=== PATIENT | female | born 1945 | race Caucasian/White ===

== ENCOUNTER 2021-08-16 06:59 | Day surgery (SDC) | payer MEDICARE, OTHER, SELFPAY ==
[2021-08-10 09:46] VITALS: BMI 23.4
[2021-08-11 10:22] VITALS: BMI 23.2
--- NOTE | 2021-08-12 13:35 | MHC.SHP ---
Pre-Procedural Eval Section A Date of Service: 08/12/21 The patient is an INPATIENT: No Changes since office visit: No Cold of Flu in the past 2 weeks, No New Medical Problems, No Changes in Medication and No Patient answered all questions The History & Physical has been completed within 30 days and I have reviewed it.: Yes Section B Chief Complaint: Cataract Right Eye Allergies: Allergies Allergy/AdvReac Type Severity Reaction Status Date / Time dexamethasone Allergy Itching, Verified 08/11/21 10:20 burning neomycin Allergy Itching, Verified 08/11/21 10:20 burning morphine AdvReac Nausea and Verified 08/11/21 10:21 Vomiting Plan Diagnosis/Plan: Unchanged I have reviewed the history and physical and performed a pertinent physical examination on my patient. No changes have occurred unless specified.
--- NOTE | 2021-08-13 13:15 | P.CONAN_ITS ---
Documented by User: Angela High NP 08/13/21 13:17 HPI - Anesthesia Eval Consult details Narrative: 76yo F for Right Cataract Extraction IOL Insertion PCP cleared No prev cataract on record PMFSH Past Medical History Medical History Arthritis Cataracts, both eyes PONV (postoperative nausea and vomiting) Surgical History Surgical History Hx of colonoscopy Hx of repair of left rotator cuff Hx of tonsillectomy Social History Social History (Updated 08/11/21 @ 10:22 by Mena Mckay RN) Patient Tobacco Use Status: Never used Tobacco Are you DNR?: No Advance Directives: No (will bring dos) Advance Directives Information Provided: No Advance Directives on File: No Meds Allergies Allergy/AdvReac Type Severity Reaction Status Date / Time dexamethasone Allergy Itching, Verified 08/16/21 08:00 burning neomycin Allergy Itching, Verified 08/16/21 08:00 burning morphine AdvReac Nausea and Verified 08/16/21 08:00 Vomiting Home Medications Medication Instructions Recorded Confirmed Last Taken Type [place] DHA 830 mg PO BID 08/11/21 Unknown History cholecalciferol (vitamin D3) 25 25 mcg PO DAILY 08/11/21 08/11/21 Unknown History mcg (1,000 unit) capsule (Vitamin D3) estradiol VAGINAL 2XW 08/11/21 Unknown History flaxseed oil 1,000 mg capsule 1,000 mg PO DAILY 08/11/21 08/11/21 Unknown History red yeast rice 600 mg capsule 1,200 mg PO BID 08/11/21 08/11/21 Unknown History triamcinolone acetonide 0.1 % appl TOPICAL 08/11/21 Unknown History topical cream Exam Exam Date and Time: August 13, 2021 1315 Height,Weight and Vital Signs: Height 5 ft 1 in Weight 55.792 kg Assessment and Plan Assessment Anesthesia Assessment: Chart Reviewed Documented by User: Franky Smith MD 08/16/21 08:15 [facility] Past Medical History Medical History Arthritis Cataracts, both eyes PONV (postoperative nausea and vomiting) Family History Family history of problems with anesthesia: No Surgical History Surgical History Hx of colonoscopy Hx of repair of left rotator cuff Hx of tonsillectomy History of Problems with Anesthesia: No Social History Social History (Updated 08/11/21 @ 10:22 by Mena Mckay RN) Patient Tobacco Use Status: Never used Tobacco Are you DNR?: No Advance Directives: No (will bring dos) Advance Directives Information Provided: No Advance Directives on File: No Meds Allergies Allergy/AdvReac Type Severity Reaction Status Date / Time dexamethasone Allergy Itching, Verified 08/16/21 08:00 burning neomycin Allergy Itching, Verified 08/16/21 08:00 burning morphine AdvReac Nausea and Verified 08/16/21 08:00 Vomiting Home Medications Medication Instructions Recorded Confirmed Last Taken Type [place] DHA 830 mg PO BID 08/11/21 Unknown History cholecalciferol (vitamin D3) 25 25 mcg PO DAILY 08/11/21 08/11/21 Unknown History mcg (1,000 unit) capsule (Vitamin D3) estradiol VAGINAL 2XW 08/11/21 Unknown History flaxseed oil 1,000 mg capsule 1,000 mg PO DAILY 08/11/21 08/11/21 Unknown History red yeast rice 600 mg capsule 1,200 mg PO BID 08/11/21 08/11/21 Unknown History triamcinolone acetonide 0.1 % appl TOPICAL 08/11/21 Unknown History topical cream Exam Airway Mallampati Class: II TM Dist: >3cm Neck ROM: Full Loose/Missing/Broken Teeth: No Heart: rrr+s1s2 Lungs: cta b/l Assessment and Plan Assessment Anesthesia Assessment: Anesthesia Plan Discussed Final Anesthetic Review Family History of Problems with Anesthesia: No History of Problems with Anesthesia: No NPO: Yes ASA Class: II Final Preanesthetic Review: No Changes in Pt Med Stat, Meds/Allgs Chart Reviewed, Consent Obtained/Reviewed and Anes Risks/Benef Reviewed Patient Risk: Intermediate Procedure Risk: Low Assessment/Block/Sedation in SS: Assess/Block/Sedation-SS Anesthetic Plan Anesthetic Plan: MAC: and Agree w/ Assess. and Plan Disposition: Standard PACU
[2021-08-16 08:02] VITALS: BP 150/88; PULSE 72; RESP 16; TEMP 36.2; O2SAT 97
[2021-08-16] MEDS: Tetracaine HCl/PF 0.5% Oph Sol 4 ML DROPS 1 DROP EYE-RIGHT (08:14)
[2021-08-16] MEDS: Lactated Ringers 500 ML 50 ML IV (08:15)
[2021-08-16] MEDS: Tropicamide 1 % Ophth Sol 3 ML BTL 1 DROP EYE-RIGHT ×3 (08:16→08:28)
[2021-08-16] MEDS: Phenylephrine HCL 2.5% Oph SoL 2 ML BOTTLE 1 DROP EYE-RIGHT ×3 (08:19→08:32)
--- NOTE | 2021-08-16 09:17 | P.PCNO_ITS ---
Ophthalmology Procedure Procedure Date of Service: 08/16/21 Ophthalmology Viscoelastic: Healon Duet Dual Pack Pro Ophthalmology Lenses: TECNIS ZXR00 (12.5) Procedure Notes: PREOPERATIVE DIAGNOSIS: Decreased visual acuity right eye secondary to cataract POSTOPERATIVE DIAGNOSIS: Same PROCEDURE: Right cataract extraction with multifocal intraocular lens insertion SURGEON: Diaz Cox M.D. ANESTHESIA: Topical/MAC ESTIMATED BLOOD LOSS: None COMPLICATIONS: None After obtaining informed consent, the patient was brought to the operating room suite and placed in the supine position. After adequate sedation per anesthesia, topical drops of Tetracaine were given to the right eye. The eye was then prepped and draped in the usual sterile fashion. The operating room microscope was then positioned over the operative eye and a lid speculum placed. A paracentesis was created. Viscoelastic was then instilled into the anterior chamber. A three plane incision was then created temporally, utilizing a 2.85 mm keratome. Capsulotomy forceps were then utilized to create a circular tear capsulotomy. Hydrodissection and hydrodelineation were carried out until adequate mobilization of the nucleus occurred. Phacoemulsification was then utilized to remove the dense central nuc leus followed by removal of the cortical material utilizing the automated aspiration irrigation unit. Viscoelastic was instilled into the posterior capsular bag followed by placement of a multifocal posterior chamber intraocular lens without difficulty. The residual Viscoelastic was then removed utilizing the automated IA machine. The wound was checked and found to be watertight. The patient tolerated the procedure well and the lid speculum was removed. Intracameral injection of Vigamox 0.1 mL followed by a subtenon injection of Kenalog-40 0.2 mL were administered. The patient will be seen in the a.m.
[2021-08-16 09:41] VITALS: BP 130/68; PULSE 62; RESP 14; TEMP 36.8; O2SAT 98
== END 2021-08-16 10:02 | disposition home or self-care (01) ==
PROVIDERS: PCP Family Medicine; Visit Provider Ophthalmology
PROC: (CPT 66984; principal; 2021-08-16 09:10)
DX: H25.11 Age-related nuclear cataract, right eye (principal); H43.391 Other vitreous opacities, right eye; H54.7 Unspecified visual loss; Z88.8 Allergy status to other drugs, medicaments and biological substances
CPT/HCPCS: 66984; J2250; J3010; J3300; V2788

== ENCOUNTER 2021-08-30 06:46 | Day surgery (SDC) | payer MEDICARE, OTHER, SELFPAY ==
[2021-08-11 10:24] VITALS: BMI 23.2
--- NOTE | 2021-08-26 13:34 | MHC.SHP ---
Pre-Procedural Eval Section A Date of Service: 08/26/21 The patient is an INPATIENT: No Changes since office visit: No Cold of Flu in the past 2 weeks, No New Medical Problems, No Changes in Medication and No Patient answered all questions The History & Physical has been completed within 30 days and I have reviewed it.: Yes Section B Chief Complaint: Cataract Left Eye Allergies: Allergies Allergy/AdvReac Type Severity Reaction Status Date / Time dexamethasone Allergy Itching, Verified 08/16/21 08:00 burning neomycin Allergy Itching, Verified 08/16/21 08:00 burning morphine AdvReac Nausea and Verified 08/16/21 08:00 Vomiting Plan Diagnosis/Plan: Unchanged I have reviewed the history and physical and performed a pertinent physical examination on my patient. No changes have occurred unless specified.
[2021-08-30 07:31] VITALS: BP 139/83; PULSE 74; RESP 17; TEMP 36.1; O2SAT 96
[2021-08-30] MEDS: Phenylephrine HCL 2.5% Oph SoL 2 ML BOTTLE 1 DROP EYE-LEFT ×3 (07:43→07:45)
[2021-08-30] MEDS: Lactated Ringers 500 ML 50 ML IVCONT (07:43)
[2021-08-30] MEDS: Tetracaine HCl/PF 0.5% Oph Sol 4 ML DROPS 1 DROP EYE-LEFT (07:43)
[2021-08-30] MEDS: Tropicamide 1 % Ophth Sol 3 ML BTL 1 DROP EYE-LEFT ×3 (07:43→07:45)
--- NOTE | 2021-08-30 08:01 | HO.ANESPROP2 ---
HPI - Anesthesia Eval Consult details Narrative: Left eye cataract PMFSH Past Medical History Medical History Arthritis Cataracts, both eyes PONV (postoperative nausea and vomiting) Family History Family history of problems with anesthesia: No Surgical History Surgical History Hx of colonoscopy Hx of repair of left rotator cuff Hx of tonsillectomy History of Problems with Anesthesia: No Social History Social History (Updated 08/11/21 @ 10:22 by Mena Mckay RN) Patient Tobacco Use Status: Never used Tobacco Are you DNR?: No Advance Directives: Yes Advance Directives Information Provided: No Advance Directives on File: Yes Advance Directives Date on File: 08/30/21 Meds Allergies Allergy/AdvReac Type Severity Reaction Status Date / Time dexamethasone Allergy Itching, Verified 08/16/21 08:00 burning neomycin Allergy Itching, Verified 08/16/21 08:00 burning morphine AdvReac Nausea and Verified 08/16/21 08:00 Vomiting Active Medications: Current Medications Lactated Ringer's (Lr) 500 mls @ 50 mls/hr IVCONT .Q10H MARGRET Last Admin: 08/30/21 07:43 Dose: 50 mls/hr Documented by: Povidone Iodine (Povidone Iodine 5 % Ophth Soln 30 Ml Bottle) 1 appl EYE-LEFT PREOP PRN PRN Reason: Pre-Op Surgical Implant Prophy Home Medications Medication Instructions Recorded Confirmed Last Taken Type [place] DHA 830 mg PO BID 08/11/21 Unknown History cholecalciferol (vitamin D3) 25 25 mcg PO DAILY 08/11/21 08/11/21 Unknown History mcg (1,000 unit) capsule (Vitamin D3) estradiol VAGINAL 2XW 08/11/21 Unknown History flaxseed oil 1,000 mg capsule 1,000 mg PO DAILY 08/11/21 08/11/21 Unknown History red yeast rice 600 mg capsule 1,200 mg PO BID 08/11/21 08/11/21 Unknown History triamcinolone acetonide 0.1 % appl TOPICAL 08/11/21 Unknown History topical cream Exam Exam Date and Time: August 30, 2021 0802 Height,Weight and Vital Signs: Height 5 ft 1 in Weight 55.792 kg Last Vital Signs Temp 97 F 08/30/21 07:31 Pulse 74 08/30/21 07:31 Resp 17 08/30/21 07:31 BP 139/83 08/30/21 07:31 Pulse Ox 96 08/30/21 07:31 Airway Mallampati Class: II TM Dist: >3cm Neck ROM: Full Loose/Missing/Broken Teeth: No Heart: rrr +s1s2 Lungs: cta b/l Assessment and Plan Assessment Anesthesia Assessment: Anesthesia Plan Discussed and Chart Reviewed Final Anesthetic Review Family History of Problems with Anesthesia: No History of Problems with Anesthesia: No NPO: Yes ASA Class: II Final Preanesthetic Review: No Changes in Pt Med Stat, Meds/Allgs Chart Reviewed, Consent Obtained/Reviewed and Anes Risks/Benef Reviewed Patient Risk: Low Procedure Risk: Low Assessment/Block/Sedation in SS: Assess/Block/Sedation-SS Anesthetic Plan Anesthetic Plan: MAC: and Agree w/ Assess. and Plan Disposition: Standard PACU
--- NOTE | 2021-08-30 08:58 | HO.PNOPHT ---
Ophthalmology Procedure Procedure Date of Service: 08/30/21 Ophthalmology Viscoelastic: Healon Duet Dual Pack Pro Ophthalmology Lenses: TECNIS ZXR00 (11.5) Procedure Notes: PREOPERATIVE DIAGNOSIS: Decreased visual acuity left eye secondary to cataract POSTOPERATIVE DIAGNOSIS: Same PROCEDURE: Left cataract extraction with multifocal intraocular lens insertion SURGEON: Diaz Cox M.D. ANESTHESIA: Topical/MAC ESTIMATED BLOOD LOSS: None COMPLICATIONS: None After obtaining informed consent, the patient was brought to the operation room suite and placed in the supine position. After adequate sedation per anesthesia, topical drops of Tetracaine were given to the left eye. The eye was then prepped and draped in the usual sterile fashion. The operating room microscope was then positioned over the operative eye and a lid speculum placed. A paracentesis was created. Viscoelastic was then instilled into the anterior chamber. A three plane incision was then created temporally, utilizing a 2.85 mm keratome. Capsulotomy forceps were then utilized to create a circular tear capsulotomy. Hydrodissection and hydrodelineation were carried out until adequate mobilization of the nucleus occurred. Phacoemulsification was then utilized to remove the dense central nucleus followed by removal of the cortical material utilizing the automated aspiration irrigation unit. Viscoelastic was instilled into the posterior capsular bag followed by placement of a multifocal posterior chamber intraocular lens without difficulty. The residual Viscoelastic was then removed utilizing the automated IA machine. The wound was check and found to be watertight. The patient tolerated the procedure well and the lid speculum was removed. Intracameral injection of Vigamox 0.1 mL followed by a subtenon injection of Kenalog-40 0.2 mL were administered. The patient will be seen in the a.m.
[2021-08-30 09:20] VITALS: BP 113/58; PULSE 68; RESP 16; TEMP 36.8; O2SAT 96
== END 2021-08-30 09:30 | disposition home or self-care (01) ==
PROVIDERS: PCP Family Medicine; Visit Provider Ophthalmology
PROC: (CPT 66984; principal; 2021-08-30 08:40)
DX: H25.12 Age-related nuclear cataract, left eye (principal); H54.7 Unspecified visual loss; H43.391 Other vitreous opacities, right eye; Z83.511 Family history of glaucoma
CPT/HCPCS: 66984; J2250; J2405; J3010; J3300; V2788